=== PATIENT | female | born 1995 | race Caucasian/White ===

== ENCOUNTER 2017-04-10 12:49 | Emergency (ER) | payer OTHER ==
[~2017-04-10] VITALS: Ht 152.4 cm; Wt 79.4 kg
[2017-04-10 13:02] VITALS: BP 134/69
--- NOTE | 2017-04-10 13:10 | NUR ---
UA SPECIMEN COLLECTED. PT SENT TO LOBBY TO WAIT FOR A BED.
--- NOTE | 2017-04-10 13:11 | NUR ---
PT TAKEN TO BED 10.
--- NOTE | 2017-04-10 13:16 | NUR ---
PATIENT PRESENTS TO ED WITH C/O UPPER EPIGASTRIC PAIN X3 DAYS WITH NAUSEA DENIES VOMITING AND DIARRHEA, HEADACHE SINCE SATURDAY; INTERMITTENT, 08/29; SKIN IS PINK/WARM/DRY; AAOX4 WITH EVEN AND STEADY GAIT; LUNGS CLEAR BL; HR EVEN AND REGULAR; PT DENIES ANY FEVER, CP, SOB, OR COUGH AT THIS TIME; PATIENT POSITIONED FOR COMFORT; HOB ELEVATED; BEDRAILS UP X2; BED DOWN. ER MD MADE AWARE OF PT STATUS.
--- NOTE | 2017-04-10 13:18 | NUR ---
DR PARISH AT BEDSIDE.
[2017-04-10] MEDS ORDERED: DICYCLOMINE HCL LIQUID 10 MG/5 ML UDC PO ONE (13:25)
[2017-04-10] MEDS ORDERED: LIDOCAINE VISCOUS 2% 20 ML UDC PO ONE (13:25)
[2017-04-10] MEDS ORDERED: ALUMINUM HYD/MAG/SIMETHICONE 30 ML UDC PO ONE (13:25)
[2017-04-10 14:26] LABS: APPEARANCE,URINE CLEAR (CLEAR); BILIRUBIN,URINE NEGATIVE (NEGATIVE); BLOOD, URINE 1+ (NEGATIVE); LEUKOCYTE ESTERASE ,URINE NEGATIVE (NEGATIVE); NITRITE, URINE NEGATIVE (NEGATIVE); PH,URINE 6.5 (5.0-9.0); UGLUCOSE NEGATIVE (NEGATIVE)
[2017-04-10 14:36] LABS: COLOR,URINE STRAW (YELLOW)
[2017-04-10 14:39] LABS: RBC,URINE 0-5 (RARE) /HPF (0-5); WBC,URINE NONE SEEN /HPF (0-5)
[2017-04-10 14:57] VITALS: BP 123/71
--- NOTE | 2017-04-10 14:57 | NUR ---
Patient discharged with v/s stable. Written and verbal after care instructions given and explained. Patient alert, oriented and verbalized understanding of instructions. Ambulatory with steady gait. All questions addressed prior to discharge. ID band removed. Patient advised to follow up with PMD. Rx of PRILOSEC AND MAALOX given. Patient educated on indication of medication including possible reaction and side effects. Opportunity to ask questions provided and answered.
== END 2017-04-10 14:57 | disposition home or self-care (01) ==
LOC: MED 12:49
DX: K29.70 Gastritis, unspecified, without bleeding (principal)
CPT/HCPCS: 81001; 81025; 99283